=== PATIENT | male | born 1950 | race Caucasian/White ===

== ENCOUNTER → 2017-03-30 | Outpatient (CLI) | payer OTHER ==
--- NOTE | ~2017-03-30 | CR63 ---
[facility]. 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 Referring Physician: Lita Peraza A.P.R.N. Ordering Physician: Lita Peraza A.P.R.N. Primary Care Physician: Radha Castillo M.D. MEDICAL IMAGING REPORT This report is preliminary unless electronic signature is present. EXAM Chest 03/30/2017 HISTORY 67-year-old male patient, cough x2 weeks. COMPARISON STUDIES 01/21/2011. FINDINGS PA and lateral chest views show normal cardiac size and configuration. Hilar structures and mediastinal contours are preserved. Bilateral lungs are expanded and clear. Minimal pleural response left costophrenic angle. Left humeral prosthesis partially imaged. IMPRESSION No acute chest finding. Dictated by... Jhonathan Parker M.D. THIS IS AN ELECTRONICALLY VERIFIED REPORT Jhonathan Parker M.D. at 03/31/2017 8:11 AM DEN/maverick TD: 03/31/2017 02:40 JOB #: [id number] MEDICAL IMAGING REPORT Page 1 of 1
== END | disposition home or self-care (01) ==
LOC: SRAD 13:51
DX: R05 Cough (principal)
CPT/HCPCS: 71020